=== PATIENT | female | born 1975 | race Caucasian/White ===

== ENCOUNTER 2020-12-23 21:24 | Emergency (ER) | payer BC ==
[~2020-12-23] VITALS: Ht 170.2 cm; Wt 72.6 kg
[2020-12-23 21:24] VITALS: BP_SYST 155
--- NOTE | 2020-12-23 21:24 | NUR ---
Placed in room 06 . [address] on court recording monitor, blood pressure machine and pulse oximeter. To gown for exam. Side rails up. Report given to GHASSAN CALHOUN
--- NOTE | 2020-12-23 21:30 | NUR ---
Patient BIB by family from home. C/O chest pain x today. Patient reported, "felt uneasy, maybe dehydration." Patient was drinking for past 2 days. A/O,X4, denies chest pain this time, place patient on cardiac care nurse and pluse ox. STAT EKG at bedside.
[2020-12-23 22:16] LABS: BASOPHILS # (AUTO) 0.1 K/uL (0.0-0.2); BASOPHILS % (AUTO) 1.3 % (0.0-2.0); EOSINOPHILS # (AUTO) 0.2 K/uL (0.0-0.4); EOSINOPHILS % (AUTO) 3.8 % (0.0-4.0); HEMATOCRIT 37.9 % (36-48); LYMPHOCYTES # (AUTO) 2.6 K/uL (1.0-5.5); MEAN CORPUSCULAR HEMOGLOBIN 32 pg (27-31); MEAN CORPUSCULAR HGB CONC 34 % (32-36); MEAN CORPUSCULAR VOLUME 92 fL (79.0-98.0); MONOCYTES # (AUTO) 0.4 K/uL (0.0-1.0); MONOCYTES % (AUTO) 7.4 % (1.7-9.3); NEUTROPHILS # (AUTO) 2.3 K/uL (1.8-7.7); NEUTROPHILS % (AUTO) 41.5 % (40.0-70.0); PLATELET COUNT (AUTO) 178 K/uL (130-430); RED BLOOD CELL COUNT(AUTO) 4.11 MIL/uL (4.2-6.2); RED CELL DISTRIBUTION WIDTH 13.2 % (9.0-15.0); WHITE BLOOD COUNT (AUTO) 5.6 K/uL (4.8-10.8)
[2020-12-23 22:45] LABS: CALCIUM 8.9 mg/dL (8.4-11.0); CREATININE 1.07 mg/dL (0.55-1.30); POTASSIUM 3.5 mmol/L (3.5-5.1)
--- NOTE | 2020-12-23 22:48 | NUR ---
family at bedside.
--- NOTE | 2020-12-23 22:49 | NUR ---
DR. ROMANO AT BEDSIDE
[2020-12-23 22:59] LABS: ALBUMIN 3.8 g/dL (3.4-4.8); FREE T4 (FREE THYROXINE) 1.1 ng/dl (0.8-1.5); THYROID STIMULATING HORMONE 5.15 uIu/mL (0.36-3.74); TOTAL BILIRUBIN 0.5 mg/dL (0.0-1.0)
[2020-12-23] MEDS ORDERED: LORazepam 1 MG TABLET PO ONE (23:00)
[2020-12-23] MEDS ORDERED: LORazepam 1 MG TABLET ONE (23:02)
--- NOTE | 2020-12-23 23:22 | NUR ---
Patient resting quietly. No acute distress noted. Vital signs within normal range.
--- NOTE | 2020-12-24 00:08 | NUR ---
Dr. Burnham at bedside to explain lab results and treatment plans.
[2020-12-24 00:15] VITALS: BP_SYST 126
--- NOTE | 2020-12-24 00:15 | NUR ---
Patient given written and verbal discharge instructions and verbalizes understanding. ER MD discussed with patient the results and treatment provided. Patient in stable condition. ID arm band removed. IV catheter removed intact and dressing applied, no active bleeding. No Rx given. Patient educated on pain management and to follow up with PMD. Pain Scale 0/10 Opportunity for questions provided and answered.
== END 2020-12-24 00:15 | disposition home or self-care (01) ==
LOC: SED 21:24
DX: R00.2 Palpitations (principal); I10 Essential (primary) hypertension
CPT/HCPCS: 36415; 71045; 80053; 82550; 83880; 84439; 84443; 84479; 84484; 85025; 85379; 93005; 99285